=== PATIENT | male | born 1975 ===

== ENCOUNTER 2017-10-07 00:07 | Emergency (ER) | payer MEDICAID ==
[2017-10-07 00:39] VITALS: O2SAT 98
--- NOTE | 2017-10-07 01:00 | C.PDOC ---
History Of Present Illness 41 year old male is brought in to the ED by his neighbor for evaluation. 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 Patient reports he uses heroin, cocaine, xanax regularly. Patient does not have any complaints only states feeling tired. Chief Complaint (Nursing): Substance Abuse History Per: Patient, Other (Neighbor) History/Exam Limitations: intoxication Onset/Duration Of Symptoms: Hrs Current Symptoms Are (Timing): Still Present Suicide/Self Injury Attempted (Context): None Modifying Factor(s): Other (Heroin) Associated Symptoms: denies: Depression, Suicidal Thoughts, Suicidal Plan Involuntary Hold By: None Recent travel outside of the [place]: No Additional History Per: Patient, Friend Past Medical History Reviewed: Historical Data, Nursing Documentation, Vital Signs Vital Signs: Last Vital Signs Temp 98.8 F 10/07/17 02:27 Pulse 74 10/07/17 02:27 Resp 19 10/07/17 02:27 BP 150/71 10/07/17 02:27 Pulse Ox 98 10/07/17 02:27 - Medical History PMH: No Chronic Diseases Surgical History: No Surg Hx Family History: States: Unknown Family Hx - Social History Hx Alcohol Use: No Hx Substance Use: Yes - Immunization History Hx Tetanus Toxoid Vaccination: No Hx Influenza Vaccination: No Hx Pneumococcal Vaccination: No Review Of Systems Constitutional: Negative for: Fever, Chills Cardiovascular: Negative for: Chest Pain Respiratory: Negative for: Shortness of Breath Gastrointestinal: Negative for: Nausea, Vomiting Neurological: Negative for: Weakness, Numbness Psych: Negative for: Depression, Suicidal ideation Physical Exam - Physical Exam Appears: Non-toxic, No Acute Distress Skin: Normal Color, Warm, Dry Head: Atraumatic, Normacephalic Eye(s): bilateral: Normal Inspection Oral Mucosa: Moist Neck: Normal ROM, Supple Chest: Symmetrical Cardiovascular: Rhythm Regular Respiratory: Normal Breath Sounds, No Rales, No Rhonchi, No Wheezing Gastrointestinal/Abdominal: Soft, No Tenderness, No Guarding, No Rebound Extremity: Normal ROM, No Tenderness, No Swelling Neurological/Psych: Oriented x3, Normal Speech Gait: Steady ED Course And Treatment O2 Sat by Pulse Oximetry: 98 (ON RA) Pulse Ox Interpretation: Normal Disposition Counseled Patient/Family Regarding: Diagnosis - Disposition Referrals: [facility] [Outside] Disposition: HOME/ ROUTINE Disposition Time: 02:30 Condition: STABLE Instructions: Drug Abuse and Drug Addiction (DC) Forms: [employer] (Syrian) - POA Present On Arrival: None - Clinical Impression Clinical Impression: Drug abuse - Scribe Statement The provider has reviewed the documentation as recorded by the Scribe Ronen Arias All medical record entries made by the Scribe were at my direction and personally dictated by me. I have reviewed the chart and agree that the record accurately reflects my personal performance of the history, physical exam, medical decision making, and the department course for this patient. I have also personally directed, reviewed, and agree with the discharge instructions and disposition.
[2017-10-07 02:28] VITALS: BP 150/71; PULSE 74; RESP 19; TEMP 98.8
== END 2017-10-07 02:31 | disposition home or self-care (01) ==
LOC: C.ER 00:07
DX: F19.10 Other psychoactive substance abuse, uncomplicated (principal)